=== PATIENT | male | born 1965 | race Caucasian/White ===

== ENCOUNTER → 2021-06-22 | Outpatient (CLI) | payer BC ==
--- NOTE | 2021-06-22 10:17 | XR ---
EXAMINATION TYPE: XR chest 2V DATE OF EXAM: 06/22/2021 COMPARISON: NONE TECHNIQUE: PA and lateral views submitted. HISTORY: Preop FINDINGS: The lungs are clear and there is no pneumothorax, pleural effusion, or focal pneumonia. Heart size normal. No overt failure. Biapical pleural thickening. IMPRESSION: 1. No acute process.
== END | disposition home or self-care (01) ==
LOC: RADXRMAIN 09:59
PROVIDERS: ATTEND Surgery Plastic and Reconstructive Surgery
DX: E88.01 Alpha-1-antitrypsin deficiency (principal); I10 Essential (primary) hypertension
CPT/HCPCS: 71046; 93005

== ENCOUNTER 2021-12-15 07:45 | Day surgery (SDC) | payer BC ==
--- NOTE | 2021-12-15 07:35 | P.GSHP ---
History of Present Illness H&P Date: 12/15/21 CHIEF COMPLAINT: Colon screen HISTORY OF PRESENT ILLNESS: The patient is a 56-year-old male who presents for colon screen. Lower endoscopy was offered for further evaluation and management. PAST MEDICAL HISTORY: Please see list. PAST SURGICAL HISTORY: Please see list. MEDICATIONS: Please see list. ALLERGIES: Please see list. SOCIAL HISTORY: No illicit drug use FAMILY HISTORY: No reports of Crohn disease or ulcerative colitis. REVIEW OF ORGAN SYSTEMS: CONSTITUTIONAL: No reports of fevers or chills. PHYSICAL EXAM: VITAL SIGNS: Stable GENERAL: Well-developed pleasant in no acute distress. HEENT: No scleral icterus. Extraocular movements grossly intact. Moist buccal mucosa. NECK: Supple without lymphadenopathy. CHEST: Unlabored respirations. Equal bilateral excursions. CARDIOVASCULAR: Regular rate and rhythm. Distal 2+ pulses. ABDOMEN: Soft, nontender, nondistended. MUSCULOSKELETAL: No clubbing, cyanosis, or edema. ASSESSMENT: 1. Colon screen. PLAN: 1. Recommend proceeding with a lower endoscopy Past Medical History Past Medical History: Asthma, Mitral Valve Prolapse (MVP) Additional Past Medical History / Comment(s): Alpha 1 antitrypsin deficiency History of Any Multi-Drug Resistant Organisms: None Reported Additional Past Surgical History / Comment(s): neck surgery for herniated disc Past Anesthesia/Blood Transfusion Reactions: No Reported Reaction Smoking Status: Never smoker - Past Family History Mother Family Medical History: No Reported History Medications and Allergies Home Medications Medication Instructions Recorded Confirmed Type Fluticasone/Vilanterol [Breo 1 puff INHALATION DAILY 12/14/21 12/14/21 History Ellipta 200-25 Mcg Inhaler] Allergies Allergy/AdvReac Type Severity Reaction Status Date / Time No Known Allergies Allergy Verified 12/14/21 08:49
[~2021-12-15 07:45] MED LIST: LACTATED RINGERS 1,000 ML IV SCH; LIDOCAINE 1% (10MG/ML) FOR IV START INTRADERMA PRN; ONDANSETRON 4 MG/2 ML VIAL IVP PRN
[2021-12-15 08:22] VITALS: RESP 16; TEMP 96.9
[2021-12-15] MEDS ORDERED: PROPOFOL 10 MG/ML 20 ML VIAL IV ONE (09:28)
[2021-12-15 10:03] VITALS: BP 138/84; PULSE 67
--- NOTE | 2021-12-15 10:29 | P.PCN ---
Date of Procedure: 12/15/21 Description of Procedure: PREOPERATIVE DIAGNOSIS: Colonoscopy screening POSTOPERATIVE DIAGNOSIS: Tubular adenoma splenic flexure OPERATION: Colonoscopy to the ileocecal valve and appendiceal orifice, cecum Colonoscopy with hot snare polypectomy SURGEON: Eileen Salmon MD. ANESTHESIA: MAC. INDICATIONS: The patient is an 56-year-old male who presents colonoscopy screening. Benefits and risks were described and informed consent was obtained. DESCRIPTION OF PROCEDURE: The patient had undergone Sutab prep. The patient had been brought into the operating room and laid in the left lateral decubitus position. After adequate intravenous sedation, the rectum was examined with 2% lidocaine jelly. The prostate was unremarkable. No external hemorrhoids were encountered. The rectal tone was within normal limits. No lesions were palpated in the rectal vault. An Olympus colonoscope was advanced until the cecum, ileocecal valve and appendiceal orifice were clearly viewed. The prep was excellent. Few sigmoid diverticulosis was encountered. Colonic polyps were found and removed. No evidence of focal colitis was found. Retroflexion of the scope demonstrated grade 2 internal hemorrhoids without active bleeding or inflammation. The colon was desufflated. The patient had tolerated the procedure well. Withdrawal time was over 6 minutes. FINDINGS: Aronchick preparation quality scale 1 (1-5) Internal hemorrhoids, grade 1 No external hemorrhoids, grade 4. No arteriovenous malformations. Sigmoid diverticulosis, few Removal of 1 polyp: - Snare polypectomy at splenic flexure, 12 mm flat villous adenoma polyp. - Cold forceps biopsy at proximal transverse colon, 4 mm polyp. No focal colitis. RECOMMENDATIONS: Repeat colonoscopy 3 years2024. Plan - Discharge Summary Discharge Rx Participant: No New Discharge Prescriptions: Continue Fluticasone/Vilanterol [Breo Ellipta 200-25 Mcg Inhaler] 1 puff INHALATION DAILY Discharge Medication List Fluticasone/Vilanterol [Breo Ellipta 200-25 Mcg Inhaler] 1 puff INHALATION DAILY 12/14/21 [History] Follow up Appointment(s)/Referral(s): Eileen Salmon MD [STAFF PHYSICIAN] - As Needed Patient Instructions/Handouts: *[facility] - (Anesthesia) Endoscopy Discharge Instructions, Colorectal Polyps (GEN), Colonoscopy (DC) Activity/Diet/Wound Care/Special Instructions: Repeat colonoscopy in 3 years2024 Discharge Disposition: HOME SELF-CARE
== END 2021-12-15 10:53 | disposition home or self-care (01) ==
LOC: ORWHC2ENDO 07:45
PROVIDERS: ATTEND Surgery Plastic and Reconstructive Surgery
DX: Z12.11 Encounter for screening for malignant neoplasm of colon (principal); K63.5 Polyp of colon; K57.30 Diverticulosis of large intestine without perforation or abscess without bleeding; K64.0 First degree hemorrhoids; J45.909 Unspecified asthma, uncomplicated
CPT/HCPCS: 88305; 45385; 45380; J2704

== ENCOUNTER 2022-01-13 14:48 | Day surgery (SDC) | payer BC ==
--- NOTE | 2022-01-13 07:35 | P.GSHP ---
History of Present Illness H&P Date: 01/13/22 CHIEF COMPLAINT: Inguinal hernia, right. HISTORY OF PRESENT ILLNESS: The patient is a 56-year-old male who presents with a history of swelling and pain along the right groin. He's noted increased swelling including pain of the area. Now he presents for repair of his inguinal hernia. PAST MEDICAL HISTORY: Please see list. PAST SURGICAL HISTORY: Please see list. MEDICATIONS: Please see list. ALLERGIES: Please see list. SOCIAL HISTORY: No illicit drug use FAMILY HISTORY: No reports of Crohn disease or ulcerative colitis. REVIEW OF ORGAN SYSTEMS: CONSTITUTIONAL: No reports of fevers or chills. No reports of weight loss despite prior attempts. GI: Denies any blood in stools or constipation. PHYSICAL EXAM: VITAL SIGNS: Stable GENERAL: Well-developed pleasant male in no acute distress. HEENT: No scleral icterus. Extraocular movements grossly intact. Moist buccal mucosa. NECK: Supple without lymphadenopathy. CHEST: Unlabored respirations. Equal bilateral excursions. CARDIOVASCULAR: Regular rate and rhythm. Distal 2+ pulses. ABDOMEN: Soft, nondistended. No peritoneal signs. Palpable defect of the right groin. MUSCULOSKELETAL: No clubbing, cyanosis, or edema. ASSESSMENT: 1. Inguinal hernia, right PLAN: 1. Recommend proceeding with a robotic inguinal repair with mesh with possible bilateral approach. 2. Benefits and risks of surgical intervention was discussed including possibility of open technique. 3. DVT prophylaxis. 4. Antibiotic prophylaxis. 5. Non narcotic pain management including abdominal wall block described 6. Blood sugar glucose described. 7. Weight loss management described. 8. He is elevated risk due to COPD and hypertension heart disease Past Medical History Past Medical History: Asthma, Hypertension, Mitral Valve Prolapse (MVP) Additional Past Medical History / Comment(s): Alpha 1 antitrypsin deficiency, recently started on BP med. History of Any Multi-Drug Resistant Organisms: None Reported Additional Past Surgical History / Comment(s): neck surgery for herniated disc, recent colonoscopy Past Anesthesia/Blood Transfusion Reactions: No Reported Reaction Smoking Status: Never smoker - Past Family History Mother Family Medical History: No Reported History Medications and Allergies Home Medications Medication Instructions Recorded Confirmed Type Fluticasone/Vilanterol [Breo 1 puff INHALATION DAILY 12/14/21 01/11/22 History Ellipta 200-25 Mcg Inhaler] Albuterol Inhaler [Ventolin Hfa 1 - 2 puff INHALATION Q6H PRN 01/11/22 01/11/22 History Inhaler] Losartan Potassium [Cozaar] 50 mg PO 1200 01/11/22 01/11/22 History Allergies Allergy/AdvReac Type Severity Reaction Status Date / Time No Known Allergies Allergy Verified 01/11/22 11:22
[~2022-01-13 14:48] MED LIST changes: +ACETAMINOPHEN TAB 500 MG TAB PO STA; +GABAPENTIN 300 MG CAP PO STA; +HEPARIN SODIUM,PORCINE/PF 5,000 UNIT/0.5 ML SYRINGE SQ PRN; -LACTATED RINGERS 1,000 ML IV SCH; -LIDOCAINE 1% (10MG/ML) FOR IV START INTRADERMA PRN; +MELOXICAM 7.5 MG TAB PO SCH; -ONDANSETRON 4 MG/2 ML VIAL IVP PRN; +TAMSULOSIN 0.4 MG CAP.ER.24H PO STA
[2022-01-13] MEDS ORDERED: LACTATED RINGERS 1,000 ML IV ONE (15:27)
[2022-01-13 15:32] LABS: Basophils # (A) 0.1 k/uL (0-0.2); Basophils % (A) 1 %; Eosinophils # (A) 0.3 k/uL (0-0.7); Eosinophils % (A) 3 %; HCT 47.7 % (39.0-53.0); HGB 16.9 gm/dL (13.0-17.5); Lymphocytes # (A) 1.9 k/uL (1.0-4.8); Lymphocytes % (A) 24 %; MCH 34.1 pg (25.0-35.0); MCHC 35.4 g/dL (31.0-37.0); MCV 96.6 fL (80.0-100.0); Monocytes # (A) 0.5 k/uL (0-1.0); Monocytes % (A) 7 %; Neutrophils # (A) 5.2 k/uL (1.3-7.7); Neutrophils % (A) 64 %; Platelet Count 258 k/uL (150-450); RBC 4.94 m/uL (4.30-5.90); RDW 12.1 % (11.5-15.5); WBC 8.1 k/uL (3.8-10.6)
[2022-01-13] MEDS ORDERED: ONDANSETRON 4 MG/2 ML VIAL ONE (15:39)
[2022-01-13] MEDS ORDERED: DEXAMETHASONE SOD PHOSPHATE 4 MG/ML 1 ML VIAL IVP ONE (15:45)
[2022-01-13] MEDS ORDERED: MIDAZOLAM 2 MG/2 ML VIAL IVP ONE (17:59)
[2022-01-13] MEDS ORDERED: NEOSTIGMINE 1 MG/ML 10 ML VIAL ONE (18:31)
[2022-01-13] MEDS ORDERED: ROCURONIUM 10 MG/ML (5 ML VIAL) IV ONE (18:31)
[2022-01-13] MEDS ORDERED: ROPIVACAINE 5 MG/ML 30 ML VIAL ONE (18:31)
[2022-01-13] MEDS ORDERED: GLYCOPYRROLATE 0.2 MG/ML 2 ML VIAL ONE (18:31)
[2022-01-13] MEDS ORDERED: fentaNYL (PF) 50 MCG/ML 2 ML AMP ONE (18:31)
[2022-01-13] MEDS ORDERED: KETAMINE 10 MG/ML 20 ML VIAL ONE (18:31)
[2022-01-13] MEDS ORDERED: PHENYLEPHRINE-0.9% NACL SYG 1,000 MCG/10 ML SYRINGE ONE (18:31)
[2022-01-13] MEDS ORDERED: SODIUM CHLORIDE 0.9% (PF) 10 ML VIAL ONE (18:31)
[2022-01-13] MEDS ORDERED: PROPOFOL 10 MG/ML 20 ML VIAL IV ONE (18:31)
[2022-01-13] MEDS ORDERED: DEXAMETHASONE SOD PHOSPHATE 4 MG/ML 1 ML VIAL ONE (18:31)
[2022-01-13] MEDS ORDERED: MIDAZOLAM 2 MG/2 ML VIAL ONE (18:31)
[2022-01-13] MEDS ORDERED: BUPIVACAIN-EPI 0.25%-1:200,000 30 ML VIAL SQ ONE (18:54)
--- NOTE | 2022-01-13 18:54 | P.ANPRN ---
Procedure Note - Anesthesia - Nerve Block Performed Bilateral Erector Spinae Single Time Out Performed: Yes Date of Procedure: 01/13/22 Procedure Start Time: 17:58 Procedure Stop Time: 18:07 Location of Patient: PreOp Indication: Requested by Surgeon Specifically requested for management of pain by DrJourdan: Eileen Salmon Sedation Type: Sedate with meaningful contact maintained Preparation: Sterile Prep Position: Prone Needle Types: Pajunk Needle Gauge: 21 Ultrasound used to visualize needle placement: Yes Ultrasound used to observe medication spread: Yes Injectate: 0.5% Ropivacaine (see comment for volume) (15 ml +14 ml PF NS +4 mg Dexamethason per side) Blood Aspirated: No Pain Paresthesia on Injection Noted: No Resistance on Injection: Normal Image Stored and Saved: Yes Events: Uneventful and Well Tolerated
[2022-01-13 18:57] LABS: ALT 9 U/L (4-49); AST 17 U/L (17-59); African American GFR (CKD) >90 (>60 ml/min/1.73 sqM); Albumin 1.2 g/dL (3.5-5.0); Alkaline Phosphatase <20 U/L (38-126); Anion Gap 11 mmol/L; Blood Urea Nitrogen 8 mg/dL (9-20); Carbon Dioxide 11 mmol/L (22-30); Chloride 107 mmol/L (98-107); Non-African American GFR(CKD) >90 (>60 ml/min/1.73 sqM); Potassium 4.7 mmol/L (3.5-5.1); Sodium 129 mmol/L (137-145); Total Protein 2.4 g/dL (6.3-8.2)
[2022-01-13 19:14] LABS: Calcium 6.4 mg/dL (8.4-10.2); Glucose 40 mg/dL (74-99)
[2022-01-13 19:31] LABS: Glucose,Whole Blood 116 mg/dL (70-110)
[2022-01-13] MEDS ORDERED: HYDROcodone/APAP 5-325MG 1 EACH TAB PO PRN (20:53)
[2022-01-13] MEDS ORDERED: HYDROmorphone 1 MG/ML 1 ML SYRINGE IVP PRN (20:53)
[2022-01-13] MEDS ORDERED: NALOXONE 0.4 MG/ML 1 ML VIAL IV PRN (20:53)
[2022-01-13] MEDS ORDERED: ONDANSETRON 4 MG/2 ML VIAL IVP PRN (20:53)
[2022-01-13] MEDS ORDERED: TAMSULOSIN 0.4 MG CAP.ER.24H PO STA (20:56)
[2022-01-13] MEDS ORDERED: SODIUM CHLORIDE 0.9% 2,000 ML IV ONE (20:57)
[2022-01-13 21:05] LABS: Albumin 3.9 g/dL (3.5-5.0); Calcium 8.3 mg/dL (8.4-10.2); Potassium 4.9 mmol/L (3.5-5.1); Total Bilirubin 1.6 mg/dL (0.2-1.3); Total Protein 6.1 g/dL (6.3-8.2)
--- NOTE | 2022-01-13 21:05 | P.OP ---
Date of Procedure: 01/13/22 Description of Procedure: SURGEON: OJ SALMON MD PREOPERATIVE DIAGNOSES: 1. Initial right inguinal hernia 2. Hypertensive heart disease 3. Alpha-1 antitrypsin deficiency 4. Mitral valve prolapse POSTOPERATIVE DIAGNOSES: 1. Initial right inguinal hernia, direct 2. Hypertensive heart disease 3. Alpha-1 antitrypsin deficiency 4. Mitral valve prolapse 5. Severe pelvic adhesions 6. Subfascial pelvic lipoma, right inguinal OPERATION: 1. Robotic-assisted da Lilliana Xi laparoscopic lysis of adhesions over 30 minutes 2. Robotic-assisted da Lilliana Xi laparoscopic reduction and repair of initial large incarcerated right direct inguinal hernia with mesh, 11.[address] 3. Resection of large incarcerated right inguinal lipoma, 11 x 6 cm ANESTHESIA: General with local anesthetic ESTIMATED BLOOD LOSS: 5 mL. SPECIMENS: 1. Large right inguinal lipoma and hernia sac COMPLICATIONS: None. FINDINGS: 1. Direct right inguinal hernia defect, 4 cm involving bladder sidewall extending to scrotum 2. Reduced large incarcerated subfascial right inguinal lipoma, 11 x 6 cm maureen timeters 3. Severe pelvic adhesions including left groin and highly redundant sigmoid colon with diverticulosis obscured view of left inguinal region INDICATIONS: The patient is a 56-year-old gentleman who presents with symptomatic right inguinal hernia. Now presents for definitive surgical intervention. Laparoscopic versus open and robotic approaches were discussed. Benefits and risks including bleeding, infection, injury to the vas deferens as well as sterility and chronic groin pain were reviewed. Placement of mesh was also described. Informed consent was obtained. DESCRIPTION: In the preoperative area, the patient was marked with indelible marker along the inguinal hernia. The patient was brought to the operating room and initially laid in supine position. The abdomen had been prepped and draped in standard sterile fashion. Ioban draping was also placed. Prior to incision, a timeout protocol was confirmed with surgical team regarding patient's name including procedures to be performed and location along the right groin. Initial positioning for the robotic assisted ports were selected whereby 15 cm superior to the target anatomy, 0 degree 5 mm laparoscopic trocar entry was performed at the left upper quadrant. The abdomen was insufflated to 15 mmHg which he had tolerated well. Diagnostic laparoscopy demonstrated no injury to bowel, viscera or mesentery. Severe pelvic adhesions involving the sigmoid colon adherent to the left groin obscured identification of left inguinal hernia. Large right inguinal hernia involving bladder sidewall, direct type identified. Next, along the epigastrium, 8 mm robot trocar was placed. An 8-mm robotic trocar was placed under direct visualization at the right upper quadrant. An 8 mm port was placed at the left u pper quadrant. All trocars were positioned between 10-cm apart from each other. An accessory trocar 12 mm placed along the right upper abdominal wall, lateral. The Cynny XI robot was primed, draped, prepared for docking along upper abdomen of the patient. The patient was positioned 14 steep Trendelenburg position I then went to the Cynny Xi console. The administrative sales assistant was at bedside for exchange of the robot arms and equipment. The right direct inguinal hernia with incarcerated bladder sidewall and lipoma was identified. Severe pelvic occasions involving the sigmoid colon to the left pelvis and right pelvis was identified. Extensive lysis of adhesions over 30 minutes was performed using vessel sealer. The right inguinal hernia defect was probed where large 11 x 6 centimeters subfascial lipoma was reduced. The contents was evaginated whereby the peritoneum was scored using Endo scissors with cautery. Once completely reduced into the abdominal cavity, the peritoneal sac of the hernia was stripped. The sac with subfascial lipoma was resected and then passed off for further pathological analysis. The size of the hernia defect was 4 cm with intraoperative films obtained. The inguinal lipoma, subfascial 11 x 6 cm was resected. Using a nonabsorbable 2-0 VLOC, the peritoneal defect of the right inguinal hernia site was closed using a pursestring suture. The defect was found to be completely closed. As an onlay, an 11.[address] mesh by [employer] was cut in half and entered into the abdominal cavity via the 8 mm trocar. The mesh was tacked to the pelvis using nonabsorbable 2-0 VLOC sutures. The robot was undocked from the patient's bedside. I then rescrubbed into the case. Specimen was retrieved using an 10 mm Endo Catch bag. Catalino Iniguez with 0 Vicryl was used to close the right lateral upper quadrant 12 mm trocar incision. Insufflation was released from the abdominal cavity and all instruments were removed from the abdominal cavity. Air within the scrotum and pelvis was relieved without recurrent hernia. The rest of incisions were reapproximated using 4-0 Monocryl in a running subcuticular fashion. Incisions were cleansed using dilute hydrogen peroxide. Liquid glue was applied to the skin. At the end of the procedure, the needle, sponge and instrument counts had been verified correct by the surgical sales representative. The patient had tolerated the procedure well and was taken to the postanesthesia care unit in stable condition. Intraoperative findings were reviewed patient's family. Plan - Discharge Summary Discharge Rx Participant: Yes New Discharge Prescriptions: New Simethicone [Gas-X] 125 mg PO AC-TID PRN #20 capsule PRN Reason: Pain Tamsulosin [Flomax] 0.4 mg PO DAILY #7 cap Ibuprofen [Motrin] 600 mg PO Q8HR PRN #30 tab PRN Reason: Pain Acetaminophen Tab [Tylenol Tab] 1,000 mg PO Q6HR PRN #30 tablet PRN Reason: Pain Continue Fluticasone/Vilanterol [Breo Ellipta 200-25 Mcg Inhaler] 1 puff INHALATION DAILY Losartan Potassium [Cozaar] 50 mg PO 1200 Albuterol Inhaler [Ventolin Hfa Inhaler] 1 - 2 puff INHALATION Q6H PRN PRN Reason: Shortness Of Breath Discharge Medication List Fluticasone/Vilanterol [Breo Ellipta 200-25 Mcg Inhaler] 1 puff INHALATION DAILY 12/14/21 [History] Albuterol Inhaler [Ventolin Hfa Inhaler] 1 - 2 puff INHALATION Q6H PRN 01/11/22 [History] Losartan Potassium [Cozaar] 50 mg PO 1200 01/11/22 [History] Acetaminophen Tab [Tylenol Tab] 1,000 mg PO Q6HR PRN #30 tablet 01/13/22 [Rx] Ibuprofen [Motrin] 600 mg PO Q8HR PRN #30 tab 01/13/22 [Rx] Simethicone [Gas-X] 125 mg PO AC-TID PRN #20 capsule 01/13/22 [Rx] Tamsulosin [Flomax] 0.4 mg PO DAILY #7 cap 01/13/22 [Rx] Follow up Appointment(s)/Referral(s): Oj Salmon MD [STAFF PHYSICIAN] - 01/18/22 (Telehealth) Patient Instructions/Handouts: *[facility] - Managing Your Pain After Surgery Without Opioids, Laparoscopic Herniorrhaphy (DC), Inguinal Hernia (DC) Activity/Diet/Wound Care/Special Instructions: No lifting for 4 pounds in 4 weeks, Feb 13 Using antibacterial soap. May shower. No bathtub soaks for 2 weeks, Jan 27 Use ice along incisions for today to prevent swelling. Use tylenol and ibuprofen scheduled for 3 days Discharge Disposition: HOME SELF-CARE
[2022-01-13] MEDS ORDERED: ACETAMINOPHEN IV (For NPO) 1,000 MG/100 ML VIAL IVPB ONE (21:07)
[2022-01-13] MEDS ORDERED: ALBUTEROL NEBULIZED 2.5 MG/3 ML INHALATION PRN (22:00)
[2022-01-13] MEDS: ACETAMINOPHEN IV (For NPO) 1,000 MG in EMPTY BAG 1 BAG IVPB SCH ×2 (22:03→23:49)
[2022-01-13] MEDS: HEPARIN SODIUM,PORCINE/PF 5,000 UNIT/0.5 ML SYRINGE SQ SCH (22:05)
[2022-01-13] MEDS: KETOROLAC 15 MG/ML 1 ML VIAL IVP SCH (23:49)
[2022-01-14] MEDS: KETOROLAC 15 MG/ML 1 ML VIAL IVP SCH ×2 (05:53→11:57)
[2022-01-14] MEDS: ACETAMINOPHEN IV (For NPO) 1,000 MG in EMPTY BAG 1 BAG IVPB SCH (05:53)
[2022-01-14] MEDS ORDERED: SODIUM CHLORIDE 0.9% 500 ML 500 ML IV ONE (06:25)
[2022-01-14 06:30] LABS: African American GFR (CKD) >90 (>60 ml/min/1.73 sqM); Anion Gap 7 mmol/L; Blood Urea Nitrogen 24 mg/dL (9-20); Calcium 8.3 mg/dL (8.4-10.2); Carbon Dioxide 25 mmol/L (22-30); Chloride 102 mmol/L (98-107); Glucose 123 mg/dL (74-99); Non-African American GFR(CKD) 82 (>60 ml/min/1.73 sqM); Potassium 4.4 mmol/L (3.5-5.1); Sodium 134 mmol/L (137-145)
[2022-01-14] MEDS ORDERED: SODIUM CHLORIDE 0.9% 1,000 ML IV SCH (06:30)
[2022-01-14] MEDS ORDERED: SODIUM CHLORIDE 0.9% 1,000 ML IV ONE (08:27)
[2022-01-14] MEDS ORDERED: TAMSULOSIN 0.4 MG CAP.ER.24H PO SCH (08:30)
[2022-01-14] MEDS: HEPARIN SODIUM,PORCINE/PF 5,000 UNIT/0.5 ML SYRINGE SQ SCH (08:47)
[2022-01-14] MEDS ORDERED: SYMBICORT 160-4.5 MCG INHALER INHALATION SCH (09:00)
[2022-01-14] MEDS ORDERED: PANTOPRAZOLE 40 MG/10 ML VIAL IV SCH (09:00)
--- NOTE | 2022-01-14 11:01 | CT ---
EXAMINATION TYPE: CT abdomen pelvis w con CT DLP: 945.6 mGycm, Automated exposure control for dose reduction was used. DATE OF EXAM: 01/14/2022 10:45 AM COMPARISON: None CLINICAL INDICATION:Male, 56 years old with history of Abdominal pain; can not urinate post hernia barlow rgery TECHNIQUE: Standard CT of the abdomen and pelvis following the administration of 70 cc of Isovue 30 0 IV contrast material. Coronal and sagittal reformats were performed. FINDINGS: LOWER CHEST: Bilateral lower lobe subsegmental atelectasis. Trace left pleural effusion. Mild cardiom egaly. ABDOMEN LIVER: Unremarkable GALLBLADDER AND BILE DUCTS: Unremarkable. PANCREAS: Unremarkable. SPLEEN: Unremarkable. ADRENAL GLANDS: Unremarkable. KIDNEYS AND URETERS: No evidence of hydronephrosis or renal calculus. The kidneys enhance symmetrical ly. Exophytic right mid kidney cyst measuring up to 2.8 cm. Additional exophytic superior pole subcen timeter hypoattenuating lesion which is too small to characterize. Nonspecific bilateral perinephric fat stranding. PELVIS BLADDER: Mildly distended urinary bladder with eccentric right anterior lateral wall thickening with surrounding fat stranding. Fat stranding extends towards the hernia repair. No surrounding fluid. REPRODUCTIVE: Unremarkable. ABDOMEN & PELVIS STOMACH AND BOWEL: Stomach and duodenum are unremarkable . No focal wall thickening or surrounding in flammatory changes. The appendix is within normal limits. No evidence of bowel obstruction. PERITONEUM: Trace pneumoperitoneum which is likely related to recent hernia surgery. No free fluid. VASCULATURE: No evidence of aortic aneurysm. Multilevel Schmorl's nodes. Multilevel degenerative disc disease most perhaps L5-S1. MUSCULOSKELETAL: No acute osseous abnormalities LYMPH NODES: No gross evidence for lymphadenopathy. SOFT TISSUE/ABDOMINAL WALL: Small amount of subcutaneous changes of emphysema within the anterior abd ominal soft tissues and bilateral abdominal wall related to recent hernia surgery. Tiny fat filled he rnia. Post surgical changes from right inguinal hernia repair. IMPRESSION: 1. Mildly distended urinary bladder with eccentric wall thickening along the anterolateral aspect wi th surrounding fat stranding extending towards the hernia repair. Correlation with urinalysis for cys titis is recommended. 2. Postsurgical changes from right inguinal hernia repair with trace pneumoperitoneum and small amou nt of subcutaneous gas. 3. Trace left pleural effusion with bilateral lower lobe subsegmental atelectasis.
[2022-01-14] MEDS ORDERED: LOSARTAN 50 MG TAB PO SCH (12:00)
[2022-01-14 12:11] VITALS: BP 129/78; PULSE 86; RESP 18; TEMP 98.4
--- NOTE | 2022-01-14 13:48 | P.PN ---
Progress Note - Text Progress Note Date: 01/14/22 CT abdomen and pelvis reviewed without gross ascites. No large recurrent right inguinal hernia identified. Overall, patient stable for discharge once tolerating diet.
== END 2022-01-14 14:48 | disposition home or self-care (01) ==
LOC: OR 14:48 → 5NMEDONC 21:26 → OR 01-14 14:48
PROVIDERS: ATTEND Surgery Plastic and Reconstructive Surgery
DX: K40.90 Unilateral inguinal hernia, without obstruction or gangrene, not specified as recurrent (principal); G89.18 Other acute postprocedural pain; I11.9 Hypertensive heart disease without heart failure; E88.01 Alpha-1-antitrypsin deficiency; I34.1 Nonrheumatic mitral (valve) prolapse; J44.9 Chronic obstructive pulmonary disease, unspecified; J90 Pleural effusion, not elsewhere classified; Z79.899 Other long term (current) drug therapy
CPT/HCPCS: 64999; 80053; 80048; 85025; 74177; 49650; C1781; J2250; J1100; J2710; J0690 ×2; J2405 ×2; J3010; J1170; J2795; J0131 ×2; J1885 ×2; J2370; J2704; C9113; Q9967; J1644 ×2; 88304

== ENCOUNTER 2022-05-27 19:41 | Emergency (ER) | payer BC ==
[2022-05-27] MEDS ORDERED: SODIUM CHLORIDE 0.9% 1,000 ML IV STA (21:31)
[2022-05-27] MEDS ORDERED: KETOROLAC 15 MG/ML 1 ML VIAL IVP STA (21:31)
[2022-05-27] MEDS ORDERED: AMPICILLIN-SULBACTAM 3 GM in SODIUM CHLORIDE 0.9% 100 ML IVPB STA (21:31)
[2022-05-27] MEDS ORDERED: ONDANSETRON 4 MG/2 ML VIAL IVP STA (21:31)
[2022-05-27] MEDS ORDERED: RX INFO: IV CONTRAST WAS GIVEN 1 EACH MISC MISCELLANE PRN (21:31)
[2022-05-27] MEDS ORDERED: DEXAMETHASONE SOD PHOSPHATE 10 MG/ML 1 ML VIAL IVP STA (21:31)
[2022-05-27] MEDS ORDERED: PANTOPRAZOLE 40 MG/10 ML VIAL IVP STA (21:47)
--- NOTE | 2022-05-27 21:48 | ED ---
General Adult HPI - General Chief complaint: Nausea/Vomiting/Diarrhea Stated complaint: SINUS INFECTION Time Seen by Provider: 05/27/22 21:14 Source: patient, RN notes reviewed, old records reviewed Mode of arrival: wheelchair Limitations: no limitations - History of Present Illness Initial comments: Patient is a 56-year-old male with past medical history remarkable for asthma, hypertension, Alpha I antitrypsin deficiency, which valve prolapse, tooth surgery 1 month ago which resulted in a perforated left maxillary sinus that was recently closed presents emergency Department complaining of concern for possible infection. Patient states that he has had purulent drainage from his nose and to the back of his throat. He is coughing it up. It is causing him to throw up as well. He feels nauseous. Is concerned that may trigger his asthma to flare. Endorses subjective fevers and chills. Endorses left-sided cheek pain and swelling. Denies difficulty breathing or swallowing. Denies poor the mild swelling. Endorses tenderness along the upper gumline as well as over the left cheek. Denies any ear pain. Denies any blurry vision or difficulty with vision. Endorses a mild headache. Has no other acute complaints at this time. Presents for further evaluation at this time. States he does have a history of a sinus abscess, which is why presents today because he did previously need IV antibiotics for that abscess and he is concerned he may be at that point. - Related Data Home Medications Medication Instructions Recorded Confirmed Fluticasone/Vilanterol [Breo 1 puff INHALATION DAILY 12/14/21 01/13/22 Ellipta 200-25 Mcg Inhaler] Albuterol Inhaler [Ventolin Hfa 1 - 2 puff INHALATION Q6H PRN 01/11/22 01/13/22 Inhaler] Losartan Potassium [Cozaar] 50 mg PO 1200 01/11/22 01/13/22 Previous Rx's Medication Instructions Recorded Acetaminophen Tab [Tylenol Tab] 1,000 mg PO Q6HR PRN #30 tablet 01/13/22 Ibuprofen [Motrin] 600 mg PO Q8HR PRN #30 tab 01/13/22 Simethicone [Gas-X] 125 mg PO AC-TID PRN #20 capsule 01/13/22 Tamsulosin [Flomax] 0.4 mg PO DAILY #7 cap 12/08/22 Amoxic-Pot Clav 875-125Mg 1 tab PO Q12HR 10 Days #20 tab 05/28/22 [Augmentin 875-125] dexAMETHasone [Decadron] 4 mg PO DAILY 5 Days #5 tablet 05/28/22 Allergies Allergy/AdvReac Type Severity Reaction Status Date / Time No Known Allergies Allergy Verified 05/27/22 20:07 Review of Systems ROS Statement: Those systems with pertinent positive or pertinent negative responses have been documented in the HPI. Review of Systems: CONST: Endorses subjective fevers and chills EYES: Denies blurry vision ENT: Endorses nasal congestion, sinus congestion C/V: Denies Chest pain RESP: Denies shortness of breath GI: Denies abdominal pain : Denies dysuria SKIN: Denies rash. MSK: Denies joint pain. NEURO: Denies headache ROS Other: All systems not noted in ROS Statement are negative. Past Medical History Past Medical History: Asthma, Hypertension, Mitral Valve Prolapse (MVP) Additional Past Medical History / Comment(s): Alpha 1 antitrypsin deficiency, recently started on BP med. History of Any Multi-Drug Resistant Organisms: None Reported Additional Past Surgical History / Comment(s): neck surgery for herniated disc, recent colonoscopy Past Anesthesia/Blood Transfusion Reactions: No Reported Reaction Past Psychological History: No Psychological Hx Reported Smoking Status: Never smoker Past Alcohol Use History: Occasional Past Drug Use History: None Reported - Past Family History Mother Family Medical History: No Reported History General Exam - General Exam Comments Initial Comments: General: He was in mild distress, feeling unwell. HEAD: Normal with no signs of head trauma. EYES: PERRLA, EOMI, conjunctiva normal, no discharge. Pupils 3 mm equal bilaterally. ENT: Hearing grossly intact, normal oropharynx. Left maxillary sinus tenderness palpation. Tenderness along the superior outer gumline on the left as well with some swelling over the left cheek. No periorbital swelling. The floor the mouth swelling. No concern for ludwigs angina. RESPIRATORY: Clear breath sounds bilaterally. No wheezes, rales, or rhonchi. No hypoxia. No respiratory distress. C/V: Regular rate and rhythm. S1 and S2 auscultated, peripheral pulses 2+ and intact throughout ABD: Abdomen is soft, nondistended. Very mild tenderness to palpation epigastric region. No guarding. No rebound tenderness. No peritoneal signs. Unremarkable exam. EXT: Normal range of motion, no obvious deformity SKIN: No rashes or lesions observed on exposed skin. NEURO: Alert and oriented x 4. Cranial nerves II-XII intact. No focal sensory or strength deficits. Limitations: no limitations Course Vital Signs 05/27/22 05/27/22 05/28/22 20:03 23:18 00:20 Temperature 98.3 F 99.2 F Pulse Rate 75 92 82 Respiratory 20 18 18 Rate Blood Pressure 150/70 149/89 142/88 O2 Sat by Pulse 99 96 95 Oximetry Medical Decision Making - Medical Decision Making Was pt. sent in by a medical professional or institution (, PA, HEALTH AND WELLNESS ADVISOR, urgent care, hospital, or detention...) When possible be specific @ -No Did you speak to anyone other than the patient for history (EMS, parent, family, police, friend...)? What history was obtained from this source @ -No Did you review nursing and triage notes (agree or disagree)? Why? @ -I reviewed and agree with nursing and triage notes Were old charts reviewed (outside hosp., previous admission, EMS record, old EKG, old radiological studies, urgent care reports/EKG's, detention records)? Report findings @ -No old charts were reviewed Differential Diagnosis (chest pain, altered mental status, abdominal pain women, abdominal pain men, vaginal bleeding, weakness, fever, dyspnea, syncope, headache, dizziness, GI bleed, back pain, seizure, CVA, palpatations, mental health, musculoskeletal)? @ -Sinus infection, intracranial infection, Covid infection, pneumonia. This list is not. EKG interpreted by me (3pts min.). @ -None done X-rays interpreted by me (1pt min.). @ -Chest x-ray reveals no obvious acute cardio pulmonary process. CT interpreted by me (1pt min.). @ -CT brain, facial bones reveals no evidence of intracranial infection. Radiology does note that Patient does have a maxillary sinus inflammation on the left with what appears to be a tooth root fragment could be the source of the infection. U/S interpreted by me (1pt. min.). @ -None done What testing was considered but not performed or refused? (CT, X-rays, U/S, labs)? Why? @ -None What meds were considered but not given or refused? Why? @ -None Did you discuss the management of the patient with other professionals (professionals i.e. , PA, HEALTH AND WELLNESS ADVISOR, lab, RT, psych nurse, social media marketer, antenna specialist, teacher, reserve officer, pillowcase cutter)? Give summary @ -Discussed with oral surgery Dr. Nolasco who was in agreement with the management. Was smoking cessation discussed for >3mins.? @ -No Was critical care preformed (if so, how long)? @ -No Were there social determinants of health that impacted care today? How? (Homelessness, low income, unemployed, alcoholism, drug addiction, transportation, low edu. Level, literacy, decrease access to med. care, [facility], rehab)? @ -No Was there de-escalation of care discussed even if they declined (Discuss DNR or withdrawal of care, Hospice)? DNR status @ -No What co-morbidities impacted this encounter? (DM, HTN, Smoking, COPD, CAD, Cancer, CVA, ARF, Chemo, Hep., AIDS, mental health diagnosis, sleep apnea, morbid obesity)? @ -None Was patient admitted / discharged? Hospital course, mention meds given and route, prescriptions, significant lab abnormalities, going to OR and other pertinent info. @ -Based on the patient's presentation and physical exam, I'm concerned for possible sinus infection for the patient. Neuro exam is unremarkable, however as I do recommend we obtain CT facial bone imaging we will obtain CT brain as well. We will also obtain a chest x-ray as well as basic infectious less than Covid screening test. Vital signs within acceptable limits. Patient was in agreement this plan. He will be symptomatically treated with IV Decadron, Toradol, Zofran, Protonix, 1 L fluid bolus as well as empiric dose of IV Unasyn. Covid is negative. Laboratory studies are reviewed and show mild dehydration. Imaging remarkable for left sinus infection with what appears to be a tooth root in the left maxillary sinus which could be the source of infection. At this time, after the patient. He received his dose of Unasyn. I believe it is safe for him to be discharged home. I did contact Dr. nolasco of oral surgery who agreed to evaluate him on an outpatient basis and recommended that he call the office on Monday. Patient will be discharged home on Augmentin and Decad indra, and ODT Zofran. He was in agreement this plan. Strict return precautions were discussed. I will provide the patient with a prescription for Augmentin, Decadron, ODT Zofran. I instructed the patient to follow up with their PCP in the next 1-3 days. I provided contact information for follow up with oral surgery. I explained that the patient should return to the emergency department if they experience any worsening symptoms. Strict return precautions were discussed with the patient. The patient expressed understanding of these instructions. I answered all questions that the patient had. The patient was discharged home in good condition with their prescriptions and follow up information. Undiagnosed new problem with uncertain prognosis? @ -No Drug Therapy requiring intensive monitoring for toxicity (Heparin, Nitro, Insulin, Cardizem)? @ -No Were any procedures done? @ -No Diagnosis/symptom? @ -Left maxillary sinus infection, likely from tooth root fragment from prior surgery Acute, or Chronic, or Acute on Chronic? @ -Acute Uncomplicated (without systemic symptoms) or Complicated (systemic symptoms)? @ -Complicated Side effects of treatment? @ -none Exacerbation, Progression, or Severe Exacerbation] @ -no Poses a threat to life or bodily function? @ -If untreated, it does have the potential. - Lab Data Result diagrams: 05/27/22 21:44 05/27/22 21:44 Lab Results 05/27/22 05/27/22 05/27/22 Range/Units 21:44 21:44 21:44 WBC 13.4 H (3.8-10.6) k/uL RBC 5.22 (4.30-5.90) m/uL Hgb 17.6 H (13.0-17.5) gm/dL Hct 50.5 (39.0-53.0) % MCV 96.7 (80.0-100.0) fL MCH 33.6 (25.0-35.0) pg MCHC 34.8 (31.0-37.0) g/dL RDW 11.6 (11.5-15.5) % Plt Count 213 (150-450) k/uL MPV 6.7 Neutrophils % 92 % Lymphocytes % 3 % Monocytes % 4 % Eosinophils % 1 % Basophils % 0 % Neutrophils # 12.3 H (1.3-7.7) k/uL Lymphocytes # 0.4 L (1.0-4.8) k/uL Monocytes # 0.5 (0-1.0) k/uL Eosinophils # 0.1 (0-0.7) k/uL Basophils # 0.0 (0-0.2) k/uL Sodium 133 L (137-145) mmol/L Potassium 4.0 (3.5-5.1) mmol/L Chloride 95 L (98-107) mmol/L Carbon Dioxide 26 (22-30) mmol/L Anion Gap 12 mmol/L BUN 15 (9-20) mg/dL Creatinine 0.93 (0.66-1.25) mg/dL Est GFR (CKD-EPI)AfAm >90 (>60 ml/min/1.73 sqM) Est GFR (CKD-EPI)NonAf >90 (>60 ml/min/1.73 sqM) Glucose 117 H (74-99) mg/dL Calcium 9.6 (8.4-10.2) mg/dL Total Bilirubin 3.7 H (0.2-1.3) mg/dL AST 25 (17-59) U/L ALT 24 (4-49) U/L Alkaline Phosphatase 80 (38-126) U/L Total Protein 8.0 (6.3-8.2) g/dL Albumin 4.9 (3.5-5.0) g/dL Lipase 48 (23-300) U/L Coronavirus (PCR) Not Detected (Not Detectd) Disposition Clinical Impression: Sinus infection Disposition: HOME SELF-CARE Condition: Good Instructions (If sedation given, give patient instructions): Sinusitis (ED) Prescriptions: Amoxic-Pot Clav 875-125Mg [Augmentin 875-125] 1 tab PO Q12HR 10 Days #20 tab dexAMETHasone [Decadron] 4 mg PO DAILY 5 Days #5 tablet Is patient prescribed a controlled substance at d/c from ED?: No Referrals: Charmaine Joe MD [Primary Care Provider] - 1-2 days Time of Disposition: 23:52
[2022-05-27 21:54] LABS: Basophils % (A) 0 %; Eosinophils # (A) 0.1 k/uL (0-0.7); Eosinophils % (A) 1 %; HCT 50.5 % (39.0-53.0); HGB 17.6 gm/dL (13.0-17.5); Lymphocytes # (A) 0.4 k/uL (1.0-4.8); Lymphocytes % (A) 3 %; MCH 33.6 pg (25.0-35.0); MCHC 34.8 g/dL (31.0-37.0); MCV 96.7 fL (80.0-100.0); Mean Platelet Volume 6.7; Monocytes # (A) 0.5 k/uL (0-1.0); Monocytes % (A) 4 %; Neutrophils # (A) 12.3 k/uL (1.3-7.7); Neutrophils % (A) 92 %; Platelet Count 213 k/uL (150-450); RBC 5.22 m/uL (4.30-5.90); RDW 11.6 % (11.5-15.5); WBC 13.4 k/uL (3.8-10.6)
--- NOTE | 2022-05-27 21:55 | XR ---
EXAMINATION TYPE: XR chest 2V DATE OF EXAM: 05/27/2022 COMPARISON: 06/22/2021 HISTORY: Shortness of breath TECHNIQUE: Frontal and lateral views of the chest are obtained. FINDINGS: Scattered senescent parenchymal changes noted. Hyperinflation compatible with COPD. No evidence for infiltrate. No evidence for atelectasis. Heart size is stable. Mediastinal structures are stable and grossly unremarkable. No evidence for hilar prominence. Degenerative changes dorsal spine. IMPRESSION: 1. No evidence for acute pulmonary disease.
[2022-05-27 22:05] LABS: ALT 24 U/L (4-49); AST 25 U/L (17-59); African American GFR (CKD) >90 (>60 ml/min/1.73 sqM); Albumin 4.9 g/dL (3.5-5.0); Alkaline Phosphatase 80 U/L (38-126); Anion Gap 12 mmol/L; Blood Urea Nitrogen 15 mg/dL (9-20); Calcium 9.6 mg/dL (8.4-10.2); Carbon Dioxide 26 mmol/L (22-30); Chloride 95 mmol/L (98-107); Glucose 117 mg/dL (74-99); Lipase 48 U/L (23-300); Non-African American GFR(CKD) >90 (>60 ml/min/1.73 sqM); Sodium 133 mmol/L (137-145); Total Bilirubin 3.7 mg/dL (0.2-1.3)
--- NOTE | 2022-05-27 22:34 | CT ---
EXAMINATION TYPE: CT brain w con, CT facial bones w con CT DLP: 948.1 mGycm, Automated exposure control for dose reduction was used. DATE OF EXAM: 05/27/2022 10:18 PM COMPARISON: None. CLINICAL INDICATION:Male, 56 years old with history of sinus infection; PHH, TOOTH PULLED 3 WEEKS AGO , PERFORATED SINUS TECHNIQUE: Axial CT images of the brain were obtained with coronal and sagittal reformats created and reviewed. Additional axial imaging of the maxillofacial structures was performed with sagittal. Contrast used:100 mL of Isovue 300 with IV Contrast, Oral contrast used: none. FINDINGS: Extra-axial spaces: No abnormal extra-axial fluid collections. Ventricular system: Within normal limits Cerebral parenchyma: No acute intraparenchymal hemorrhage or mass effect. The crockett-white junction is well differentiated. No abnormal enhancement is seen after the administration of intravenous contras t. Cerebellum: Unremarkable. Mass effect: No evidence of midline shift. Intracranial vasculature: unremarkable Soft tissues: Normal. Calvarium/osseous structures: No depressed skull fracture. Paranasal sinuses and mastoid air cells: There is left maxillary sinus opacification with foci of gas . Findings are compatible with prior history of periodontal disease with subsequent complication with paranasal sinus disease. There is a fracture fragment seen within the maxillary sinus series [address] [id number] . There is opacification of the ethmoid air cells on left. Leftward deviated nasal septum. Mild paranasal sinus mucosal thickening of the right maxillary sinus suspected layering fluid within the sphenoid sinus. Congenital nonfusion of the posterior arch of C1. Visualized orbits: Orbital contents are intact. IMPRESSION: Sequela of prior left maxillary sinus perforation with tooth root fragment seen within the left maxil prema sinus. Finding could represent source of infection/inflammation. No acute intracranial process. No intracranial abnormal enhancement.
[2022-05-27 23:19] VITALS: RESP 18
[2022-05-28 00:22] VITALS: BP 142/88; PULSE 82; TEMP 99.2
== END 2022-05-28 00:21 | disposition home or self-care (01) ==
LOC: EC 19:41
DX: J32.9 Chronic sinusitis, unspecified (principal); I10 Essential (primary) hypertension; J45.909 Unspecified asthma, uncomplicated; Z79.899 Other long term (current) drug therapy; Z20.822 Contact with and (suspected) exposure to COVID-19
CPT/HCPCS: 99284; 96365; 96375 ×4; 36415; 80053; 83690; 85025; 87635; 71046; 70487; 70460; J1100; J2405; J0295; J1885; C9113; Q9967

== ENCOUNTER 2022-12-11 07:43 | Emergency (ER) | payer BC ==
[2022-12-11] MEDS ORDERED: ACET/COD 300 MG/30 MG STARTER PACK 6 TAB BTL PO STA (07:57)
[2022-12-11] MEDS ORDERED: HYDROcodone/APAP 7.5-325MG 1 EACH TAB PO ONE (07:57)
[2022-12-11] MEDS ORDERED: AMOXIC-POT CLAV 875MG STARTER PACK 2 TAB BTL PO STA (07:58)
--- NOTE | 2022-12-11 08:01 | ED ---
ENT HPI - General Chief complaint: Dental/Oral Stated complaint: dental infection Time Seen by Provider: 12/11/22 07:53 Source: patient, RN notes reviewed Mode of arrival: ambulatory Limitations: no limitations - History of Present Illness Initial comments: 57-year-old male presents emergency Department chief complaint right-sided dental pain. Patient states that he is currently in the process of getting implants, did have some recent procedures. Patient states that they broke a tooth off so they held off a little while but states that overnight he developed right-sided facial pain and mild swelling no difficulty breathing no headache or dizziness he states it's only located along his upper teeth. Denies any pain with ocular movements of the right. - Related Data Home Medications Medication Instructions Recorded Confirmed Fluticasone/Vilanterol [Breo 1 puff INHALATION DAILY 12/14/21 01/13/22 Ellipta 200-25 Mcg Inhaler] Albuterol Inhaler [Ventolin Hfa 1 - 2 puff INHALATION Q6H PRN 01/11/22 01/13/22 Inhaler] Losartan Potassium [Cozaar] 50 mg PO 1200 01/11/22 01/13/22 Previous Rx's Medication Instructions Recorded Acetaminophen Tab [Tylenol Tab] 1,000 mg PO Q6HR PRN #30 tablet 01/13/22 Ibuprofen [Motrin] 600 mg PO Q8HR PRN #30 tab 01/13/22 Simethicone [Gas-X] 125 mg PO AC-TID PRN #20 capsule 01/13/22 Tamsulosin [Flomax] 0.4 mg PO DAILY #7 cap 01/13/22 Amoxic-Pot Clav 875-125Mg 1 tab PO Q12HR 10 Days #20 tab 05/28/22 [Augmentin 875-125] Ondansetron Odt [Zofran Odt] 4 mg PO Q8HR PRN 3 Days #9 tab 05/28/22 dexAMETHasone [Decadron] 4 mg PO DAILY 5 Days #5 tablet 05/28/22 Amoxic-Pot Clav 875-125Mg 1 tab PO Q12HR #20 tab 12/11/22 [Augmentin 875-125] Ibuprofen [Motrin] 600 mg PO Q8HR PRN #20 tab 12/11/22 Allergies Allergy/AdvReac Type Severity Reaction Status Date / Time No Known Allergies Allergy Verified 12/11/22 07:53 Review of Systems ROS Statement: Those systems with pertinent positive or pertinent negative responses have been documented in the HPI. ROS Other: All systems not noted in ROS Statement are negative. Past Medical History Past Medical History: Asthma, Hypertension, Mitral Valve Prolapse (MVP) Additional Past Medical History / Comment(s): Alpha 1 antitrypsin deficiency, recently started on BP med. History of Any Multi-Drug Resistant Organisms: None Reported Additional Past Surgical History / Comment(s): neck surgery for herniated disc, recent colonoscopy Past Anesthesia/Blood Transfusion Reactions: No Reported Reaction Past Psychological History: No Psychological Hx Reported Smoking Status: Never smoker Past Alcohol Use History: Occasional Past Drug Use History: None Reported - Past Family History Mother Family Medical History: No Reported History General Exam Limitations: no limitations General appearance: alert, in no apparent distress Head exam: Present: atraumatic, normocephalic, normal inspection Eye exam: Present: normal appearance, PERRL, EOMI. Absent: scleral icterus, conjunctival injection, periorbital swelling ENT exam: Present: mucous membranes moist, TM's normal bilaterally. Absent: normal exam, normal oropharynx (Mild swelling right, no drainable abscess there is mild tenderness along the upper dentition on the right) Neck exam: Present: normal inspection, full ROM. Absent: tenderness, meningismus, lymphadenopathy Respiratory exam: Present: normal lung sounds bilaterally. Absent: respiratory distress, wheezes, rales, rhonchi, stridor Cardiovascular Exam: Present: regular rate, normal rhythm, normal heart sounds. Absent: systolic murmur, diastolic murmur, rubs, gallop, clicks Course Vital Signs 12/11/22 07:51 Temperature 98.1 F Pulse Rate 85 Respiratory 20 Rate Blood Pressure 155/72 O2 Sat by Pulse 96 Oximetry Medical Decision Making - Medical Decision Making Was pt. sent in by a medical professional or institution (, PA, SPINNER OPERATOR, urgent care, hospital, or retirement...) When possible be specific @ -No Did you speak to anyone other than the patient for history (EMS, parent, family, police, friend...)? What history was obtained from this source @ -No Did you review nursing and triage notes (agree or disagree)? Why? @ -I reviewed and agree with nursing and triage notes Were old charts reviewed (outside hosp., previous admission, EMS record, old EKG, old radiological studies, urgent care reports/EKG's, retirement records)? Report findings @ -No old charts were reviewed Differential Diagnosis (chest pain, altered mental status, abdominal pain women, abdominal pain men, vaginal bleeding, weakness, fever, dyspnea, syncope, headache, dizziness, GI bleed, back pain, seizure, CVA, palpatations, mental health, musculoskeletal)? @ -Dental abscess, dental infection, dental caries toothache EKG interpreted by me (3pts min.). @ -None X-rays interpreted by me (1pt min.). @ -None done CT interpreted by me (1pt min.). @ -None done U/S interpreted by me (1pt. min.). @ -None done What testing was considered but not performed or refused? (CT, X-rays, U/S, labs)? Why? @ -None What meds were considered but not given or refused? Why? @ -None Did you discuss the management of the patient with other professionals (professionals i.e. , PA, SPINNER OPERATOR, lab, RT, psych nurse, social media analyst, conservation biology professor, teacher, sheriff's officer, window caser)? Give summary @ -No Was smoking cessation discussed for >3mins.? @ -No Was critical care preformed (if so, how long)? @ -No Were there social determinants of health that impacted care today? How? (Homelessness, low income, unemployed, alcoholism, drug addiction, transportation, low edu. Level, literacy, decrease access to med. care, [facility], rehab)? @ -No Was there de-escalation of care discussed even if they declined (Discuss DNR or withdrawal of care, Hospice)? DNR status @ -No What co-morbidities impacted this encounter? (DM, HTN, Smoking, COPD, CAD, Cancer, CVA, ARF, Chemo, Hep., AIDS, mental health diagnosis, sleep apnea, morbid obesity)? @ -None Was patient admitted / discharged? Hospital course, mention meds given and route, prescriptions, significant lab abnormalities, going to OR and other pertinent info. @ -Discharge patient has dental infection there is no obvious abscess or drainable abscess. Patient was started on Augmentin. Patient follow-up with his dentist that his been seen for his recent procedures. Return parameters were discussed. Undiagnosed new problem with uncertain prognosis? @ -No Drug Therapy requiring intensive monitoring for toxicity (Heparin, Nitro, Insulin, Cardizem)? @ -No Were any procedures done? @ -No Diagnosis/symptom? @ -Dental infection Acute, or Chronic, or Acute on Chronic? @ -Acute Uncomplicated (without systemic symptoms) or Complicated (systemic symptoms)? @ -Uncomplicated Side effects of treatment? @ -No Exacerbation, Progression, or Severe Exacerbation? @ -No Poses a threat to life or bodily function? How? (Chest pain, USA, ID, pneumonia, PE, COPD, DKA, ARF, appy, cholecystitis, CVA, Diverticulitis, Homicidal, Suicidal, threat to staff... and all critical care pts) @ -No Disposition Clinical Impression: Toothache, Dental infection Disposition: HOME SELF-CARE Condition: Stable Instructions (If sedation given, give patient instructions): Toothache (ED) Additional Instructions: Please return to the Emergency Department if symptoms worsen or any other concerns. Prescriptions: Amoxic-Pot Clav 875-125Mg [Augmentin 875-125] 1 tab PO Q12HR #20 tab Ibuprofen [Motrin] 600 mg PO Q8HR PRN #20 tab PRN Reason: Pain Is patient prescribed a controlled substance at d/c from ED?: No Referrals: Charmaine Joe MD [Primary Care Provider] - 1-2 days Time of Disposition: 08:01
[2022-12-11 08:30] VITALS: BP 158/89; PULSE 84; RESP 18; TEMP 98.1
== END 2022-12-11 08:28 | disposition home or self-care (01) ==
LOC: EC 07:43
DX: K04.7 Periapical abscess without sinus (principal); I10 Essential (primary) hypertension; J45.909 Unspecified asthma, uncomplicated
CPT/HCPCS: 99282